=== PATIENT | female | born 1950 | race Caucasian/White ===

== ENCOUNTER 2025-05-30 12:36 | Outpatient (AMB) | payer MEDICARE, SELFPAY ==
--- NOTE | 2025-05-30 13:09 | A.OFFPC_ITS ---
Vital Signs 05/30/25 13:37 Height 5 ft 4 in Weight 168 lb 6 oz BMI 28.9 BP 140/98 H Blood Pressure Location Lt brachial Position Sitting Pulse 66 Pulse Source Pulse Oximeter Pulse Oximetry (%) 98 Oxygen Delivery Method Room Air Intake Visit Reasons: establish care Systems Mgr Required: No Accompanied by: Self / Same As Patient Allergies bee pollen (BEE STINGS) Allergy (Severe, Verified 05/30/25 14:17) ANAPHYLAXIS cat dander (cats) Allergy (Intermediate, Verified 06/05/25 02:52) sneezing, runny nose morphine (Morphine) Allergy (Intermediate, Verified 05/30/25 14:17) NAUSEA/VOMITING Sulfa (Sulfonamide Antibiotics) Allergy (Intermediate, Verified 05/30/25 14:17) DIFFICULTY BREATHING,SWELLING, angioedema, swelling, anaphylaxis vancomycin (VANCOMYCIN) Allergy (Intermediate, Verified 05/30/25 14:17) HIVES sulfur Allergy (Unknown, Verified 05/30/25 14:17) swelling, anaphylaxis bee stings Allergy (Unknown, Uncoded 05/30/25 14:17) Unknown Medication List - Last Reconciled 06/05/25 by Malik Spencer MD aspirin 81 mg PO BID atorvastatin 20 mg PO DAILY diazepam 5 mg PO Q8H PRN hydrocodone-acetaminophen 5-325 mg 1 tab PO Q6H PRN latanoprost 0.005% 1 drp ophthalmic (eye) BEDTIME omeprazole 20 mg PO DAILY potassium chloride ER 20 mEq PO BID propranolol 10 mg PO BID timolol maleate 0.5% 2 drps ophthalmic (eye) BID tizanidine 2 mg PO TID PRN Tobacco use date assessed: 05/30/25 Last assessed Fall Risk: 05/30/25 Dental Screening Dental Screen Date: 05/30/25 HPI establish care HPI Details Patient comes in today to establish care - is a new patient to the practice States that she moved back here recently from [place] after her She was originally living here in [facility] but moved down to the floor the many years ago with her when they retired and is now living here, at least temporarily, with her daughter and her son-in-law States that she is 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 She reportedly underwent surgeries to correct her eyes but the surgeries were unsuccessful She has multiple other existing chronic medical / physical conditions, including hypertension, for which she takes Propranolol She also has tremors for which she takes Propranolol as well She has a history of rheumatic fever, for which she takes low-dose aspirin twice a day preventively She is on atorvastatin for high cholesterol She also has history of osteomyelitis in his spine required IV antibiotics through a PICC line for a couple of months She has a history of spinal stenosis and underwent back surgery in the past from L2-L5 - recalls that she had some brace and screws placed onto her lower back Also (+) history of diverticulosis, allergic rhinitis and trigger finger Patient states that she feels okay otherwise She denies any headaches or dizziness Denies any chest pains, no shortness of breath No nausea/vomiting, no abdominal pain No change in bowel habits noted [facility] Medical History (Updated 06/05/25 @ 03:14 by Malik Spencer MD) Basal cell carcinoma Overweight (BMI 25.0-29.9) Glaucoma GERD without esophagitis Lumbar spinal stenosis Hyperlipidemia Retinal detachment History of osteomyelitis Benign essential tremor Essential hypertension History of rheumatic fever Surgical History (Updated 06/05/25 @ 02:46 by Malik Spencer MD) History of carpal tunnel release History of bilateral knee arthroplasty History of arthroplasty of right hip History of breast biopsy History of tubal ligation History of lumbosacral spine surgery Family History (Updated 05/30/25 @ 13:44 by WAQAS Agarwal) Other FH: mental illness Heart disease Lung cancer Substance abuse Thyroid cancer Vocal cord cancer Social History (Updated 06/05/25 @ 02:47 by Malik Spencer MD) Alcohol intake: current Alcohol intake frequency: holidays/special occasions only Patient Tobacco Use Status: Never used Tobacco Questionnaire PHQ-9 Over the last 2 weeks, how often have you been bothered by any of the following problems? 1. Little interest or pleasure in doing things: not at all 2. Feeling down, depressed, or hopeless: not at all 3. Trouble falling or staying asleep, or sleeping too much: not at all 4. Feeling tired or having little energy: not at all 5. Poor appetite or overeating: not at all 6. Feeling bad about yourself - or that you are a failure or have let yourself or your family down: not at all 7. Trouble concentrating on things, such as reading the newspaper or watching television: not at all 8. Moving or speaking so slowly that other people could have noticed. Or the opposite - being so fidgety or restless that you have been moving around a lot more than usual: not at all 9. Thoughts that you would be better off or of hurting yourself in some way: not at all Total score: 0 Depression Screening Interpretation: Negative Depression Screening Done: Yes 09257 - PHQ-9 Billing: Yes Source: Developed by Drs. Nathan Dunn, Tonya Palacios, Crow Nunez and colleagues, with an educational ayaan from [employer] Thrive Questionnaire Date Thrive assessed: 05/30/25 I am a: Patient What is your living situation today?: I choose not to answer this question Within the past 12 months, did the food you bought not last and you didn't have the money to get more?: I choose not to answer this question Within the past 12 months, did you worry whether your food would run out before you got money to buy more?: I choose not to answer this question Do you have trouble paying for medicines?: I choose not to answer this question Do you have trouble getting transportation to medical appointments?: I choose not to answer this question Do you have trouble paying your heating and electricity bill?: I choose not to answer this question Do you have trouble taking care of your child, family member or friend?: I choose not to answer this question Do you have trouble with day-to-day activities such as bathing, preparing meals, shopping, managing finances, etc.?: I choose not to answer this question Are you currently unemployed and looking for a job?: I choose not to answer this question Are you interested in more education?: I choose not to answer this question Please select the resources that you would like help with: None Currently or been in a relationship where the following occur: I choose not to answer THRIVE Score: 0 AUDIT C Alcohol Use Questionnaire (AUDIT-C) 1. How often do you have a drink containing alcohol?: 2-3 times a week 2. How many drinks containing alcohol do you have on a typical day when you are drinking?: 1 or 2 3. How often do you have six or more drinks on one occasion?: Never Total Score: 3 Score Reviewed/Action Taken: Yes BERYL-7 AMB Questionnaire BERYL-7 Date BERYL - 7 assessed: 05/30/25 Feeling nervous, anxious, or on edge: 2 = More than half the days Not being able to stop or control worryin = Not at all Worrying too much about different things: 0 = Not at all Trouble relaxin = Not at all Being so restless that it is hard to sit still: 0 = Not at all Becoming easily annoyed or irritable: 0 = Not at all Feeling afraid as if something awful might happen: 0 = Not at all Total BERYL-7 score (0-4 normal; 5-9 mild; 10-14 moderate; 15-21 severe): 2 Source: Developed by Drs. Nathan Dunn, Tonya Palacios, Crow Nunez and colleagues, with an educational ayaan from [employer] Review of Systems Const Denies chills, Denies fatigue, Denies fever(s) and Denies headache(s) Eyes Details: Patient is legally blind Reports loss of vision (bilaterally) ENT Denies dysphagia, Denies dizziness, Denies otalgia, Denies headache(s), Denies neck pain, Denies odynophagia and Denies sore throat Card Denies chest pain, Denies palpitations and Denies dyspnea Resp Denies chest congestion, Denies cough and Denies dyspnea GI Denies abdominal pain, Denies constipation, Denies dysphagia, Denies heartburn, Denies diarrhea, Denies nausea, Denies odynophagia and Denies vomiting Denies difficulty voiding, Denies nocturia and Denies dysuria Musc Reports back pain (over the lower back) and Denies neck pain Skin/Breast Denies rash Neuro Denies dizziness, Denies headache(s) and Reports loss of vision (bilaterally) Endo Denies fatigue and Denies palpitations Physical exam (Primary Care) Vital Signs: Last Vital Signs Pulse 66 05/30/25 13:37 BP 140/98 H 05/30/25 13:37 Pulse Ox 98 05/30/25 13:37 Oxygen Delivery Method Room Air 05/30/25 13:37 BMI result Body Mass Index 28.9 Tobacco/Smoking Status: Tobacco use Status Tobacco use date assessed 05/30/25 05/30/25 13:13 PHQ-9: PHQ-9 Score PHQ-9: Total score 0 05/30/25 14:22 Depression Screening Interpretation: Negative Thrive Assessment: Date of Thrive Assessment Date Thrive assessed 05/30/25 05/30/25 13:13 Currently or been in a relationship where the following occur: I choose not to answer Const General: no acute distress and alert HENMT Ears: TM's normal bilaterally and EAC's normal Throat: Yes posterior oropharynx normal and Yes tonsils normal (no TP congestion) Eyes Other: Patient is legally blind in both eyes Neck Neck: Yes supple and No lymphadenopathy Thyroid: Thyroid normal Resp Auscultation: clear to auscultation bilaterally, no rales and no wheezes Cardio Rate: regular rate Rhythm: regular rhythm Heart sounds: Murmur heart sound present systolic soft and III/ GI Palpation (GI): Soft to palpation and nontender Auscultation: normal bowel sounds General: Yes no CVA tenderness Back/Spine/Pelvis Back: no CVA tenderness Thoracic/Lumbar Spine: lumbar spinal tenderness Skin Rashes: no rashes Extrem General: Yes no clubbing, cyanosis or edema Coding Level of Care Code New Pt Level 4 (16905) Diagnoses Essential hypertension I10 Pure hypercholesterolemia E78.00 Hyperlipidemia type: pure hypercholesterolemia Cardiac murmur R01.1 History of rheumatic fever Z86.79 GERD without esophagitis K21.9 Spinal stenosis of lumbar region without neurogenic claudication M48.061 Neurogenic claudication status: without neurogenic claudication Benign essential tremor G25.0 Glaucoma of both eyes, unspecified glaucoma type H40.9 Glaucoma type: unspecified Laterality: bilateral Overweight (BMI 25.0-29.9) E66.3 Colon cancer screening Z12.11 Additional Codes PHQ-9 - 18806 - PHQ-9 Billing: Yes ([id number]) Assessment & Plan Assessment & Plan (1) Essential hypertension: Code(s): I10 - Essential (primary) hypertension Category: Medical Plan: Reinforced low sodium diet - goal is systolic BP of at least 130 to 140 mm or less Continue Propranolol 10 mg BID (2) Hyperlipidemia: Code(s): E78.5 - Hyperlipidemia, unspecified Category: Medical Qualifiers: Hyperlipidemia type: pure hypercholesterolemia Qualified Code(s): E78.00 - Pure hypercholesterolemia, unspecified Plan: Reinforced low cholesterol diet Continue Atorvastatin 20 mg QD Will recheck her labs and fasting lipids in 3 months for follow up (3) Cardiac murmur: Code(s): R01.1 - Cardiac murmur, unspecified Category: Medical Plan: (+) Hx of rheumatic fever Will send patient for echocardiogram for further evaluation (4) History of rheumatic fever: Code(s): Z86.79 - Personal history of other diseases of the circulatory system Category: Medical Plan: Continue Aspirin 81 mg BID Follow up with cardiology as scheduled (5) GERD without esophagitis: Code(s): K21.9 - Gastro-esophageal reflux disease without esophagitis Category: Medical Plan: Dietary restrictions reinforced Continue Omeprazole 20 mg QD (6) Lumbar spinal stenosis: Comment: S/P laminectomy and decompression - L2 to L5 Code(s): M48.061 - Spinal stenosis, lumbar region without neurogenic claudication Category: Medical Qualifiers: Neurogenic claudication status: without neurogenic claudication Qualified Code(s): M48.061 - Spinal stenosis, lumbar region without neurogenic claudication Plan: Reinforced activity and weight-lifting restrictions to avoid aggravating her low back pain Continue Aleve 220 mg 2 tablets BID PRN for pain (7) Benign essential tremor: Code(s): G25.0 - Essential tremor Category: Medical Plan: Continue Propranolol 10 mg BID (8) Glaucoma: Comment: patient is legally blind due to retinal detachment Code(s): H40.9 - Unspecified glaucoma Category: Medical Qualifiers: Glaucoma type: unspecified Laterality: bilateral Qualified Code(s): H40.9 - Unspecified glaucoma Plan: Continue Latanoprost 0.005% eyedrops 1 drop into each eye Q HS and Timolol 0.5% 2 drops into each eye QD Follow up with ophthalmology as scheduled (9) Overweight (BMI 25.0-29.9): Code(s): E66.3 - Overweight Category: Medical Plan: Reinforced diet; exercise and weight loss are not realistic given patient's multiple medical and physical issues (10) Colon cancer screening: Code(s): Z12.11 - Encounter for screening for malignant neoplasm of colon Category: Medical Plan: Per request, will refer her to GI for repeat colonoscopy - patient states that she is due for repeat Plan Follow up in 3 months Orders: Orders Lipid Panel 3 Months E78.00 - Pure hypercholesterolemia, unspecified TSH reflex Free T4 3 Months E78.00 - Pure hypercholesterolemia, unspecified Vitamin D 25-OH Total 3 Months E55.9 - Vitamin D deficiency, unspecified CA echo transthoracic complete 05/30/25 R01.1 - Cardiac murmur, unspecified, Z86.79 - Personal history of other diseases of the circulatory system Complete Blood Count Auto Diff 3 Months D64.9 - Anemia, unspecified Comprehensive [place]. Panel Fast 3 Months E78.00 - Pure hypercholesterolemia, unspecified UA CC w/rflx Micro + Cult 3 Months R30.0 - Dysuria Vitamin B12 and Folate 3 Months E53.8 - Deficiency of other specified B group vitamins Referrals Gastroenterology Referral Z12.11 - Encounter for screening for malignant neoplasm of colon
[2025-05-30 13:37] VITALS: BP 140/98; PULSE 66; O2SAT 98; BMI 28.9
--- OUTSIDE RECORDS SUMMARY | 2025-05-30 16:38 | XMS_ITS | Clinical Summary ---
Author Organization [address] [place] [address] Address [address] [place] [address] Phone Care Team Providers Care Mailroom Clerk Name Role Phone Mayank Dias MD Primary Care Provider Unavail able Social History Tobacco Use Types Packs/Day Years Used Date Smoking Tobacco: Never Assessed Comments Unknown Sex and Gender Information Value Date Recorded Sex Assigned at Not on file Legal Sex Female 1:23 PM EDT Gender Identity Not on file Sexual Orientation Not on file Plan of Treatment Upcoming Encounters Date Type Department Care Team ([facility] Contact Info) Description 07/21/2025 11:30 AM EST Consult Neurosurgery [facility] [address] [address] Mary Lou Bain PA [address] [place] [address] [id number] Health Maintenance Due Date Last Done Comments Breast Cancer Screening 1950 DTaP,Tdap,and Td Vaccines (1 - Tdap) 11/15/1970 Pneumococcal Vaccine: 50+ Ye ars (1 of 1 - PCV) 11/15/2001 Zoster Vaccines (1 of 2) 11/15/2001 Depression Screening 09/14/2024 COVID-19 Vaccine (1 - 2023-2 5 season) 2025 Influenza Vaccine (#1) 2025 Colorectal Cancer Screening: Colonoscopy 05/19/2025 Falls Risk Assessment 05/19/2025 Hepatitis C Screening 05/19/2025 Medicare Annual Wellness Visit 05/19/2025 Osteoporosis Screening (Bone Density Screening) 05/19/2025 Social Influencers of Health Screening 05/19/2025 RSV Immunization Adult Patie nts (1 - 1-dose 75+ series) 11/15/2026 HIB Vaccines Aged Out No longer eligi ble based on patient's age to complete this topic HPV Vaccines Aged Out No longer eligi ble based on patient's age to complete this topic Hepatitis A Vaccines Aged Out No long er eligible based on patient's age to complete this topic Hepatitis B Vaccines Aged Out No long er eligible based on patient's age to complete this topic IPV Vaccines Aged Out No longer eligi ble based on patient's age to complete this topic MMR Vaccines Aged Out No longer eligi ble based on patient's age to complete this topic Meningococcal ACWY Vaccine Aged Out N o longer eligible based on patient's age to complete this topic Meningococcal B Vaccine Aged Out No l onger eligible based on patient's age to complete this topic RSV Immunization Patients Un fan 20 months Aged Out No longer eligible b ased on patient's age to complete this topic Varicella Vaccines Aged Out No longer eligible based on patient's age to complete this topic Insurance MEDICARE [facility] Care Teams Mailroom Clerk Relationship Specialty Start Date End Date , MD Mayank [address] [address] PCP - General Internal Medicine 05/22/25
== END 2025-05-30 14:54 | disposition home or self-care (01) ==
LOC: HO.HMCH 12:37
PROVIDERS: PCP Internal Medicine; Visit Provider Internal Medicine
DX: I10 Essential (primary) hypertension (principal); E78.00 Pure hypercholesterolemia, unspecified; R01.1 Cardiac murmur, unspecified; Z86.79 Personal history of other diseases of the circulatory system; K21.9 Gastro-esophageal reflux disease without esophagitis; M48.061 Spinal stenosis, lumbar region without neurogenic claudication; G25.0 Essential tremor; H40.9 Unspecified glaucoma; E66.3 Overweight; Z12.11 Encounter for screening for malignant neoplasm of colon

== ENCOUNTER → 2025-05-30 12:36 | Outpatient (BNVA) | payer MEDICARE, SELFPAY | PROVIDERS: PCP Internal Medicine; Visit Provider Internal Medicine | DX: I10 Essential (primary) hypertension (principal); E78.00 Pure hypercholesterolemia, unspecified; R01.1 Cardiac murmur, unspecified; K21.9 Gastro-esophageal reflux disease without esophagitis; M48.061 Spinal stenosis, lumbar region without neurogenic claudication; G25.0 Essential tremor; H40.9 Unspecified glaucoma; E66.3 Overweight; Z86.79 Personal history of other diseases of the circulatory system; Z68.28 Body mass index [BMI] 28.0-28.9, adult | CPT/HCPCS: 96127; 99202 ==

== ENCOUNTER → 2025-06-28 10:47 | Outpatient (REF) | payer MEDICARE, SELFPAY ==
--- NOTE | 2025-06-28 10:51 | CA_ITS ---
Transthoracic Echocardiogram Patient (Last, First, Middle): Anna Lambert, Gender: F Date of : 1950 Age: 74 Procedure Date: 06/28/2025 Procedure Type: Transthoracic Echocardiogram Location: OP Height: 162.56 cm Weight: 76.2 kg BSA: 1.82 m2 Heart Rate: bpm BP: 140 / 94 mmHg Operative Supervisor: CHRISTOS Referring MD: Malik Spencer MD Water Hydrant Installer: Maciel Campo MD Symptoms: R01.1 - Cardiac murmur, unspecified Study Quality: Adequate ECG Rhythm: Sinus Conclusions: - 1. Normal LV ejection fraction of 65-70% 2. Calcific aortic valve changes noted with mild aortic regurgitation early mild aortic stenosis 3. Mildly dilated ascending aorta 3.7 cm 4. Normal RV systolic pressure 5. No gross pericardial effusion Findings Left Ventricle Normal left ventricular size, thickness, and systolic function. The visually estimated ejection fraction is between 65-70%. Spectral Doppler is indicative of a normal filling pattern. Right Ventricle Normal right ventricular cavity size and systolic function. Atria The left atrium is likely dilated. There is no evidence of interatrial shunt. The right atrium is normal in size. Aortic Valve The aortic valve was not well visualized. There is mild calcification of the aortic valve. The peak aortic gradient is 19 mmHg.The mean gradient is 10 mmHg. The aortic valve area is 2.21 cm2. There is mild aortic valve regurgitation. Mitral Valve There is mild anterior mitral leaflet thickening. There is trace mitral valve regurgitation. There is no mitral valve stenosis. Pulmonic Valve The pulmonic valve was not well visualized. Tricuspid Valve Normal tricuspid valve structure. There is trace tricuspid valve regurgitation. The right ventricular systolic pressure is normal. The right ventricular systolic pressure is 25 mmHg. Normal right atrial pressure. There is no evidence of pulmonary hypertension. Great Vessels The aorta was not well visualized. The pulmonary artery was not well visualized. There is mild dilatation of the ascending aorta measuring 3.70 cm. Venous The inferior vena cava is normal in size and collapses greater than 50% with inspiration. Pericardium/Pleural There is no evidence of pericardial effusion. Prior Study Comparison No prior study available for comparison. Measurements 2D Linear Measurements IVSd: 1.06 0.6-0.9/0.6-1.0 cm LVIDd: 4.20 3.9-5.3/4.2-5.9 cm LVIDd Index: 2.31 2.4-3.2/2.2-3.1 cm/m2 LVIDs: 2.68 2.0-3.6 cm LVPWd: 1.08 0.7-1.1 cm LA Diam: 3.40 2.7-3.8/3.0-4.0 cm LAIDs Index: 1.87 1.5-2.3 cm/m2 LV Mass: 208.56 67-162/88-224 g LV Mass Index: 114.59 43-95/49-115 g/m2 LVOT Diam: 2.10 3.0+(-)1.3 cm 2D Systolic Function EF 4C: 66.10 >55% EF 2C: 66.10 >55% EF BiP: 67.00 >55% Mitral Valve MV Pk E: 1.01 MV PK A: 0.66 MV Decel Time: 201.00 E/A: 1.50 E'Lateral: 8.92 E'Medial: 7.18 E/E' Med: 14.10 E/E' Lat: 11.30 PHT: 59.00 MVA PHT: 3.73 Decel Winn: 5.04 Aortic Valve AoV Pk Seven: 2.18 AoV Mn Seven: 1.47 AoV VTI: 0.60 AoV Pk Grad: 19.00 Aov Mn Grad: 10.00 ZABRINA Cont.VTI: 2.21 AI Pk Seven: 4.69 AI VTI: 3.09 AI Winn: 1.95 AI Alias Seven: 0.40 AI RV - PISA: 15.00 ERO - PISA: 5.00 LVOT LVOT Pk Seven: 1.64 LVOT Mn Seven: 0.91 LVOT VTI: 0.38 LVOT Pk Grad: 11.00 LVOT Mn Grad: 4.00 LVOT Diam: 2.10 LVOT Area: 3.46 Diastolic Function MV Pk E: 1.01 MV Pk A: 0.66 E/A: 1.50 E'Medial: 7.18 E/E' Med: 14.10 E' Laterial: 8.92 E/E' Lat: 11.30 Right Ventricle TAPSE (mm): 24.90 TVS' Seven: 11.40 Tricuspid Valve TR Pk Seven: 2.32 TR Pk Grad: 22.00 RA Press: 3.00 RVSP: 25.00 Great Vessels Aorta Sinus of Valsalva: 2.96 2.0-3.5 cm Ao Asc: 3.70 2.1-3.4 cm Pulmonary Veins Pulm Vein S/D 1.20 Updated in Other Vendor System with Status of Final Maciel Campo MD electronically signed on 06/28/2025 1:56:40 PM with status of Final
== END ==
LOC: HO.CARD 10:47
PROVIDERS: PCP Internal Medicine; Visit Provider Internal Medicine
DX: R01.1 Cardiac murmur, unspecified (principal); Z86.79 Personal history of other diseases of the circulatory system
CPT/HCPCS: 93306

== ENCOUNTER → 2025-06-28 10:51 | Outpatient (BNV) | payer MEDICARE, SELFPAY | PROVIDERS: PCP Internal Medicine; Visit Provider Internal Medicine Cardiovascular Disease | DX: I35.0 Nonrheumatic aortic (valve) stenosis (principal); I35.1 Nonrheumatic aortic (valve) insufficiency; I77.810 Thoracic aortic ectasia | CPT/HCPCS: 93306 ==

== ENCOUNTER 2025-07-31 13:33 | Outpatient (REF) | payer MEDICARE, SELFPAY | END 2025-07-31 13:34 | disposition home or self-care (01) | LOC: HO.MAMMO 13:33 | PROVIDERS: PCP Internal Medicine; Visit Provider Internal Medicine | DX: Z12.31 Encounter for screening mammogram for malignant neoplasm of breast (principal) | CPT/HCPCS: 77063; 77067 ==

== ENCOUNTER → 2025-07-31 13:45 | Outpatient (BNV) | payer MEDICARE, SELFPAY | PROVIDERS: PCP Internal Medicine; Visit Provider Internal Medicine | DX: Z12.31 Encounter for screening mammogram for malignant neoplasm of breast (principal) | CPT/HCPCS: 77063; 77067 ==

== ENCOUNTER 2025-08-17 06:27 | Outpatient (REF) | payer MEDICARE, SELFPAY ==
--- OUTSIDE RECORDS SUMMARY | 2025-08-17 06:31 | XMS_ITS | Patient Health Record ---
Author Organization [facility] Address [address] [place] [address] Care Team Providers Care Acetylene Gas Compressor Name Role Phone Tj SOLOMON, Malik Primary Care Provider Bakari Maria Jr Unavailable [phone] Allergies Allergen (clinical drug ingredient) Drug/Non Drug Allergy documented on EMR Reaction Allergy Type Onset Date Status bee stings (uncoded) Unknown Allergy Active sulfamethoxazole / trimethoprim Bactrim Unknown Drug Allergy Active Sulfa Unknown Drug Allergy Active Reason For Referral No Information Medications Medication SIG (Take, Route, Frequency, Duration) Notes Start Date End Date Status Aspirin 81 MG Tablet Chewable 1 tablet Orally Once a day Active Timolol Hemihydrate 0.5 % Solution 1 drop into affected eye Ophthalmic Once a day Active Colyte with Flavor Packs 240 GM Solution Reconstituted As directed Orally Over the specified time.; Duration: 1 day(s) 02/20/2016 Active Multivitamins 1 Capsule 1 Orally qd Active Xalatan 0.005 % Solution 1 drop into aff ected eye in the evening Ophthalmic Once a day Active Lipitor 20 MG Tablet 1 tablet Orally Onc e a day Active diazePAM 5 MG Tablet 1 tablet as needed Orally prn Active Omeprazole 20 MG Capsule Delayed Release 1 capsule Orally Once a day Active clonazePAM 0.5 MG Tablet Dispersible 1 tablet on the tongue and allow to dissolve Orally once a day Active Aleve 220 MG Capsule 1 tablet as needed Orally every 12 hrs Active Inderal LA 60 MG Capsule Extended Release 24 Hour 1 capsule Orally daily 02/20/2016 Active Immunizations Vaccine Route Administration Date Status Comme nts Flu vaccine no Preserv 3 and > Unknown 06/07/2014 Admin istered Flu vaccine no Preserv 3 and > Unknown 05/29/2015 Admin istered Social History Social History Additional Details Category Social Info Options Details Miscellaneous: Marital status: single Occupation: retired Problems Problem Type SNOMED Code ICD Code Onset Dates Problem Status W/U Status Risk Notes Problem Esophageal reflux (846174202) Esophageal reflux (530.81) Active confirmed Problem Irritable bowel syndrome (02944097) Irritable bowel syndrome (564.1) Active confirmed Problem Colon cancer screening (225815298) Colon cancer screening (Z12.11) Active confirmed Problem Irritable bowel syndrome with diarrhea (851737719) Irritable bowel syndrome with diarrhea (K58.0) Active confirmed Problem Gastroesophageal reflux disease without esophagitis (095637712) Gastroesophageal reflux disease without esophagitis (K21.9) Active confirmed Plan Of Treatment Future Test Test Name Order Date COLONOSCOPY 02/20/2016 Next Appt Details Provider Name:Bakari suarez , 10/04/2025 11:00:00 AM, [address] [place] [address], [address], [place], [address], Insurance Providers Payer Name Payer Address Payer Phone Subscriber Number Group Number Insured Name Patient Relationship to Insured Coverage Start Date Coverage End Date MEDICARE OF [place] [address] [place] [address] [id number] RICKEY GUERRA Self - patient is the insured [employer] ATT[employer] CLAIMS [address] [place] [address] [id number] RICKEY GUERRA Self - patient is the insured Medical (General) History Medical History History ICD Code colonoscopy 11-22-2010 colitis colon polyps elevated cholesterol essestial tremor osteoarthritis heart murmur for which she takes prophyl actic antibiotics retinal detachment with legal blindness Denies CA,DM,CVA,Lung disease,renal dise ase Surgical History Surgery Date(Month/Year) right hip replacement benign breast biopsy detached retina tubal ligation knee surgery right knee replacement eye surgery
--- OUTSIDE RECORDS SUMMARY | 2025-08-17 06:31 | XMS_ITS | Clinical Summary ---
Author Organization [facility] Address [address] [place] [address] Phone Care Team Providers Care Film Waxer Name Role Phone Mayank Dias MD Primary Care Provider Unavail able Allergies Active Allergy Reactions Criticality Noted Date Comments Sulfamethoxazole-Trimethoprim 2024 Bee Venom Protein (Honey Bee) 2024 Nirmatrelvir-Ritonavir 07/21/2025 Sulfair 07/21/2025 Vancomycin 07/21/2025 Medications atorvastatin (LIPITOR) 10 mg tablet 04/18/2025 Active diazePAM (VALIUM) 5 mg tablet Take 1 tablet (5 mg total) by mouth every 8 (eight) hours if needed. for anxiety 04/18/2025 Active HYDROcodone-violetta taminophen (NORCO) 5-325 mg per tablet 10/28/2024 Activ e latanoprost (XALATAN) 0.005 % ophthalmic solution INSTILL 1 DROP IN BOTH EYES EVERY NIGHT AT BEDTIME DIRECTED 05/03/2025 Active omeprazole (PriLOSEC) [address] capsule Take 1 capsule (20 mg total) by mouth 1 (one) time each day. 05/04/2025 Active potassium chloride 20 mEq tablet extended release 10/26/2024 Active propranoloL (INDERAL) 10 mg tablet 04/18/2025 Active timolol (TIMOPTIC) 0.5 % ophthalmic solution PLACE 1 DROP INTO EACH EYE TWICE DAILY DIRECTED 04/18/2025 Active tiZANidine (ZANAFLEX) 2 mg tablet 10/28/2024 Active Active Problems Problem Noted Date Diagnosed Date History of lumbar spinal fusion 07/21/2025 Assessment & Plan (07/21/2025 12:44 PM EST): Patient is s/p L2-5 posterior decompression, interbody cages, posterior fixation on 10/17/[address] Dias in [place]. She has moved back to the area to be with her daughter, has done very well after surgery, is walking better, uses a cane when she is outside of the house for security, back pain is much better. If she stands >5 minutes for example cooking she will get sharp low back pain 7-8/10. When she moves around and changes positions it improves. She denies any leg symptoms. Prior to surgery she had a lot of back pain, difficulty walking, and for years had conservative treatment options like injections also has history of osteomyelitis discitis in 2007, at the time was living here and Dr. Andrade saw her at [facility]. She does not have any recent medical issues, no history of heart attack or stroke, no diabetes, is considered legally blind. Ms. Lambert has done very well after surgery, needs to establish a neurosurgeon locally now that she has moved back. She brought a disc that had a lumbar MRI from [place], we can try to load into swiftQueue PACS, I was unable to open it on the computer in the office. We talked about physical therapy, core strengthening, balance training. Her daughter works at the [employer] in [place], they have great aquatic classes for balance, arthritis, etc. She plans to go there, will call if she has any concerns or questions. We will check 1 year follow-up lumbar CT in October. All questions answered. Encounters Date Type Department Care Team Description 07/21/2025 11:15 AM EST Consult Neurosurgery [place] [address] [place] [address] Mary Lou Bain PA History of lumbar spinal fusion (Primary Dx) from Last 3 Months Surgical History Surgery Date Site/Laterality Comments HIP-RIGHT 09/14/1998 - 09/13/1999 Right Replacement TOTAL KNEE ARTHROPLASTY 09/14/2015 - 09/13/2016 Right TOTAL KNEE ARTHROPLASTY 09/14/2016 - 09/13/2017 Left CARPAL TUNNEL RELEASE 09/14/2023 - 09/13/2024 Left SPINE SURGERY 10/17/2024 L2-5 decompression and interbody cages, posterior fusion, Dr. Dias in [place] CARPAL TUNNEL RELEASE 09/14/2024 - 09/13/2025 Right Medical History Medical History Date Comments Anemia Anxiety Osteoarthritis Diverticulosis Spinal stenosis Tremor, essential Social History Tobacco Use Types Packs/Day Years Used Date Smoking Tobacco: Former Cigarettes 0 2 012 - 1972 Passive Smoke Exposure: Past Smokeless Tobacco: Never Tobacco Cessation:Counseling Given: Not Answered Comments:Quit 2012 Comments Unknown Sex and Gender Information Value Date Recorded Sex Assigned at Not on file Legal Sex Female 1:23 PM EDT Gender Identity Not on file Sexual Orientation Not on file Obstetrics History Last Filed Vital Signs Vital Sign Reading Time Taken Comments Blood Pressure - - Pulse - - Temperature - - Respiratory Rate - - Oxygen Saturation - - Inhaled Oxygen Concentration - - Weight 74.8 kg (165 lb) 07/21/2025 11:53 AM EST Height 165.1 cm (5' 5 ) 07/21/2025 11:53 AM EST Body Mass Index 27.46 07/21/2025 11:53 AM EST Plan of Treatment Health Maintenance Due Date Last Done Comments Breast Cancer Screening 1950 Colorectal Cancer Screening: Colonoscopy 1950 DTaP,Tdap,and Td Vaccines (1 - Tdap) 11/15/1970 Pneumococcal Vaccine: 50+ Years (1 of 1 - PCV) 11/15/2001 Zoster Vaccines (1 of 2) 11/15/2001 Depression Screening 09/14/2024 Cholesterol Screening (Lipid Panel) 05/19/2025 Falls Risk Assessment 05/19/2025 Hepatitis C Screening 05/19/2025 Medicare Annual Wellness Visit 05/19/2025 Osteoporosis Screening (Bone Density Screening) 05/19/2025 Social Influencers of Health Screening 05/19/2025 COVID-19 Vaccine (2 - 2024-2 6 season) 2026 07/04/2025 RSV Immunization Adult Patients (1 - 1-dose 75+ series) 11/15/2026 Influenza Vaccine Completed 07/04/2025, 07/18/2015 HIB Vaccines Aged Out No longer eligi [...] to complete this topic RSV Immunization Patients Under 20 months Aged Out No longer eligible b ased on patient's age to complete this topic Varicella Vaccines Aged Out No longer eligible based on patient's age to complete this topic Insurance MEDICARE [facility] Care Teams Film Waxer Relationship Specialty Start Date End Date , MD Mayank [id number] [address] PCP - General Internal Medicine 05/22/25
[2025-08-17 06:40] LABS: MANUAL DIFF FLAG NO
[2025-08-17 07:15] LABS: Hematocrit 41.8 % (37.0-47.0); Hemoglobin 13.3 g/dl (12.0-16.0); Imm Gran Abs Auto 0.03 X10*3/uL (0.00-0.03); Imm Gran Pct Auto 0.5 % (0.0-0.4); Lymphocytes Absolute Auto 1.5 X10*3/uL (1.2-4.9); Mean Corpuscular HGB Conc 31.8 g/dl (31.0-35.0); Mean Corpuscular Hemoglobin 30.4 pg (27.0-33.0); Mean Corpuscular Volume 95.4 fL (80.0-98.0); NRBC Abs Auto 0.000 X10*3/uL (0.0-0.012); NRBC Pct Auto 0.0 /100WBC (0.0-0.2); Platelet Count 297 X10*3/uL (160-400); Red Blood Count 4.38 X10*6/uL (4.20-5.50); White Blood Count 5.7 X10*3/uL (4.8-10.8)
[2025-08-17 07:46] LABS: Appearance Urine Clear; Glucose Urine UA Negative (Negative); PH 5.5 (5.0-9.0); Specific Gravity - Urine 1.010 (1.005-1.025); UMIC TRIGGER UACC YES
[2025-08-17 07:59] LABS: Alanine Aminotransferase 17 U/L (0-31); Albumin Level 4.5 g/dL (3.5-5.0); Alkaline Phosphatase 115 U/L (39-117); Anion Gap 12 (12-20); Aspartate Amino Transferase 27 U/L (5-31); Blood Urea Nitrogen 17 mg/dL (9-16); Calcium 9.7 mg/dL (8.4-10.2); Carbon Dioxide 27 mmol/L (22-29); Chloride 107 mmol/L (96-108); Cholesterol 230 mg/dL (<200); Estimated Glomerular Filt Rate > 60; HDL Cholesterol 75 mg/dL (>40); Potassium 4.4 mmol/L (3.3-5.1); Sodium 142 mmol/L (135-145); Total Protein 7.5 g/dL (6.5-8.0); Triglycerides 92 mg/dL (<150)
[2025-08-17 08:11] LABS: Folate 6.9 ng/mL (> or = 4.0); Vitamin B12 323 pg/mL (200-900)
== END 2025-08-17 06:28 | disposition home or self-care (01) ==
LOC: HO.LAB 06:27
PROVIDERS: PCP Internal Medicine; Visit Provider Internal Medicine
DX: E53.8 Deficiency of other specified B group vitamins (principal); E78.00 Pure hypercholesterolemia, unspecified; E55.9 Vitamin D deficiency, unspecified; D64.9 Anemia, unspecified; R30.0 Dysuria
CPT/HCPCS: 36415; 80053; 80061; 81001; 82306; 82607; 82746; 84443; 85025

== ENCOUNTER 2025-08-21 10:08 | Outpatient (AMB) | payer MEDICARE, SELFPAY ==
[2025-08-21 10:11] VITALS: BP 130/72; PULSE 70; O2SAT 98; BMI 28.3
--- NOTE | 2025-08-21 10:11 | A.OFFPC_ITS ---
Vital Signs 08/21/25 10:11 Height 5 ft 4.57 in Weight 168 lb BMI 28.3 BP 130/72 Blood Pressure Location Lt brachial Position Sitting Pulse 70 Pulse Source Pulse Oximeter Pulse Oximetry (%) 98 Oxygen Delivery Method Room Air Intake Visit Reasons: 3 month follow up[ Allergies bee pollen (BEE STINGS) Allergy (Severe, Verified 08/21/25 10:49) ANAPHYLAXIS cat dander (cats) Allergy (Intermediate, Verified 08/21/25 10:49) sneezing, runny nose morphine (Morphine) Allergy (Intermediate, Verified 08/21/25 10:49) NAUSEA/VOMITING Sulfa (Sulfonamide Antibiotics) Allergy (Intermediate, Verified 08/21/25 10:49) DIFFICULTY BREATHING,SWELLING, angioedema, swelling, anaphylaxis vancomycin (VANCOMYCIN) Allergy (Intermediate, Verified 08/21/25 10:49) HIVES sulfur Allergy (Unknown, Verified 08/21/25 10:49) swelling, anaphylaxis bee stings Allergy (Unknown, Uncoded 08/21/25 10:49) Unknown Medication List - Last Reconciled 08/21/25 by Malik Spencer MD aspirin 81 mg PO BID atorvastatin 20 mg PO DAILY cetirizine (Zyrtec) 10 mg PO DAILY PRN diazepam 5 mg PO Q8H PRN latanoprost 0.005% 1 drp ophthalmic (eye) BEDTIME naproxen sodium 440 mg PO BID PRN omeprazole 20 mg PO DAILY propranolol 10 mg PO BID timolol maleate 0.5% 2 drps ophthalmic (eye) BID Tobacco use date assessed: 05/30/25 Fall risk assessment: No Falls in past year Last assessed Fall Risk: 08/21/25 Dental Screening Dental Screen Date: 08/21/25 Did you have a dental visit in the last 12 months?: No Did you have a dental problem in the last 6 months where you did not have access to dental care?: No Was dental information given to patient?: Patient has dentist HPI 3 month follow up[ HPI Details Patient comes in today for her follow up visit States that she has noticed increased BANGURA, mostly when she is climbing up stairs to get to her apartment, over the past few days She denies any exertional chest pains lately and denies any recent cough/cold symptoms Adds that she has also been experiencing recurrent sharp pains over her left lower rib(s) that is just under her left breast area Notes that taking deep breaths or moving or bending does trigger the pain and that the pain makes her feel more SOB when it occurs as she cannot take deep breaths due to the pain She does not recall any recent injury or trauma to her left chest area She denies any headaches or dizziness No nausea/vomiting, no abdominal pain No change in bowel habits noted Needs a couple of her Rx refilled She had her follow up labs done a few days ago - to discuss her results [facility] Medical History Basal cell carcinoma Overweight (BMI 25.0-29.9) Glaucoma GERD without esophagitis Lumbar spinal stenosis Hyperlipidemia Retinal detachment History of osteomyelitis Benign essential tremor Essential hypertension History of rheumatic fever Surgical History History of carpal tunnel release History of bilateral knee arthroplasty History of arthroplasty of right hip History of breast biopsy History of tubal ligation History of lumbosacral spine surgery Family History Other FH: mental illness Heart disease Lung cancer Substance abuse Thyroid cancer Vocal cord cancer Social History Housing: Apartment Alcohol intake: current Alcohol intake frequency: holidays/special occasions only Patient Tobacco Use Status: Former Tobacco user Tobacco use type: Cigarette e-Cigarette/Vaping Use: Never Used Second Hand Smoke Exposure: No service: No Current occupational status: retired Current occupational exposures/hazards: No Cognitive needs: No Hearing needs: No Vision needs: Yes Questionnaire PHQ-9 Over the last 2 weeks, how often have you been bothered by any of the following problems? Depression Screening Interpretation: Negative Depression Screening Done: Yes Source: Developed by Drs. Nathan Dunn, Tonya Plaacios, Crow Nunez and colleagues, with an educational ayaan from [employer] Thrive Questionnaire Date Thrive assessed: 05/29/25 I am a: Patient What is your living situation today?: I choose not to answer this question Within the past 12 months, did the food you bought not last and you didn't have the money to get more?: I choose not to answer this question Within the past 12 months, did you worry whether your food would run out before you got money to buy more?: I choose not to answer this question Do you have trouble paying for medicines?: I choose not to answer this question Do you have trouble getting transportation to medical appointments?: I choose not to answer this question Do you have trouble paying your heating and electricity bill?: I choose not to answer this question Do you have trouble taking care of your child, family member or friend?: I choose not to answer this question Do you have trouble with day-to-day activities such as bathing, preparing meals, shopping, managing finances, etc.?: I choose not to answer this question Are you currently unemployed and looking for a job?: I choose not to answer this question Are you interested in more education?: I choose not to answer this question Please select the resources that you would like help with: None Currently or been in a relationship where the following occur: I choose not to answer THRIVE Score: 0 BERYL-7 AMB Questionnaire BERYL-7 Date BERYL - 7 assessed: 05/30/25 Source: Developed by Drs. Nathan Dunn, Tonya Palacios, Crow Nunez and colleagues, with an educational ayaan from [employer] Review of Systems Const Denies chills, Denies fatigue, Denies fever(s) and Denies headache(s) Eyes Details: Patient is legally blind Reports loss of vision (bilaterally) ENT Denies dysphagia, Denies dizziness, Denies otalgia, Denies headache(s), Denies neck pain, Denies odynophagia and Denies sore throat Card Denies chest pain, Denies palpitations and Reports dyspnea on exertion Resp Details: (+) recurrent sharp pain over the left lower anterior rib(s), especially with deep breathing and movement/activity Denies chest congestion, Denies cough, Reports dyspnea on exertion and Denies wheezing GI Denies abdominal pain, Denies constipation, Denies dysphagia, Denies heartburn, Denies diarrhea, Denies nausea, Denies odynophagia and Denies vomiting Denies difficulty voiding, Denies nocturia and Denies dysuria Musc Reports back pain (over the lower back) and Denies neck pain Skin/Breast Denies rash Neuro Denies dizziness, Denies headache(s), Reports loss of vision (bilaterally) and Reports tremor(s) Endo Denies fatigue and Denies palpitations Aller/Immun Denies wheezing Physical exam (Primary Care) Vital Signs: Last Vital Signs Pulse 70 08/21/25 10:11 BP 130/72 08/21/25 10:11 Pulse Ox 98 08/21/25 10:11 Oxygen Delivery Method Room Air 08/21/25 10:11 BMI result Body Mass Index 28.3 Tobacco/Smoking Status: Tobacco use Status Tobacco use date assessed 05/30/25 08/21/25 10:13 Patient Tobacco Use Status Former Tobacco user 08/21/25 10:22 Tobacco use type Cigarette 08/21/25 10:13 e-Cigarette/Vaping Use Never Used 08/21/25 10:13 Depression Screening Interpretation: Negative Thrive Assessment: Date of Thrive Assessment Date Thrive assessed 05/29/25 08/21/25 10:13 Currently or been in a relationship where the following occur: I choose not to answer Const General: no acute distress and alert HENMT Ears: TM's normal bilaterally and EAC's normal Throat: Yes posterior oropharynx normal and Yes tonsils normal (no TP congestion) Eyes Other: Patient is legally blind in both eyes Neck Neck: Yes supple and No lymphadenopathy Thyroid: Thyroid normal Chest Chest palpation & inspection: localized rib tenderness with anteroposterior compression left mid-clavicular line Resp Auscultation: no crackles, no rales, no wheezes and diminished lung sounds bilateral Cardio Rate: regular rate Rhythm: regular rhythm Heart sounds: Murmur heart sound present systolic soft, III/ and at the right sternal border GI Palpation (GI): Soft to palpation and nontender Auscultation: normal bowel sounds General: Yes no CVA tenderness Back/Spine/Pelvis Back: no CVA tenderness Thoracic/Lumbar Spine: lumbar spinal tenderness Skin Rashes: no rashes Extrem General: Yes no clubbing, cyanosis or edema Results Reviewed Results Reviewed: Laboratory Tests 08/17/25 08/17/25 06:32 06:38 WBC 5.7 Hgb 13.3 Hct 41.8 Plt Count 297 Sodium 142 Potassium 4.4 Creatinine 0.80 Estimated GFR > 60 Fasting Glucose 88 Calcium 9.7 AST 27 ALT 17 Triglycerides 92 Cholesterol 230 H LDL Cholesterol, Calc 137 H HDL Cholesterol 75 Vitamin B12 323 25-OH Vitamin D Total 57.4 TSH 1.50 Ur Specific [place] 1.010 Urine Protein Negative Urine Glucose (UA) Negative Urine Blood Negative Urine Nitrite Negative Ur Leukocyte Esterase Trace H Coding Level of Care Code Est Pt Level 4 (62117) Diagnoses Exertional dyspnea R06.09 Rib pain on left side R07.89 Cardiac murmur R01.1 Essential hypertension I10 Pure hypercholesterolemia E78.00 Hyperlipidemia type: pure hypercholesterolemia History of rheumatic fever Z86.79 GERD without esophagitis K21.9 Spinal stenosis of lumbar region without neurogenic claudication M48.061 Neurogenic claudication status: without neurogenic claudication Benign essential tremor G25.0 Glaucoma of both eyes, unspecified glaucoma type H40.9 Glaucoma type: unspecified Laterality: bilateral Overweight (BMI 25.0-29.9) E66.3 Assessment & Plan Assessment & Plan (1) Exertional dyspnea: Code(s): R06.09 - Other forms of dyspnea Category: Medical Plan: Will send patient for chest x-rays JEB for further evaluation She had an echocardiogram done less than 2 months ago on 06/28/2025 that revealed normal LV ejection fraction of 65-70%, (+) calcific aortic valve changes noted with mild aortic regurgitation and early mild aortic stenosis, mildly dilated ascending aorta 3.7 cm, normal RV systolic pressure and no gross pericardial effusion (2) Rib pain on left side: Code(s): R07.89 - Other chest pain Category: Medical Plan: Will have her get some left rib x-rays for further evaluation but advised that her current left lower anterior rib pain is most likely due to either a rib strain or costochondritis Advised that she can try applying some warm compress over her left lower chest area PRN for now for symptomatic relief until we can get more clarification on what is causing her rib pain (3) Cardiac murmur: Code(s): R01.1 - Cardiac murmur, unspecified Category: Medical Plan: (+) Hx of rheumatic fever Echocardiogram done on 06/28/2025 revealed normal LV ejection fraction of 65-70% , (+) calcific aortic valve changes noted with mild aortic regurgitation and early mild aortic stenosis, which are most likely the source of her cardiac murmur (4) Essential hypertension: Code(s): I10 - Essential (primary) hypertension Category: Medical Plan: Reinforced low sodium diet - goal is systolic BP of at least 130 to 140 mm or less Continue Propranolol 10 mg BID although she is taking this more for her tremors than for blood pressure control (5) Hyperlipidemia: Code(s): E78.5 - Hyperlipidemia, unspecified Category: Medical Qualifiers: Hyperlipidemia type: pure hypercholesterolemia Qualified Code(s): E78.00 - Pure hypercholesterolemia, unspecified Plan: Results of her labs done a few days ago reviewed and discussed with patient - she is advised that her total and LDL cholesterol levels were elevated on her recent labs, with her LDL cholesterol at 137 mg/dl Reinforced low cholesterol diet Will increase her Atorvastatin to 40 mg QD - patient states that she often has trouble swallowing large tablets so she is requesting Rx for 2 x 20 mg tablets instead of a 40 mg tablet, which is much larger Will recheck her labs and fasting lipids in 4 months for follow up (6) History of rheumatic fever: Code(s): Z86.79 - Personal history of other diseases of the circulatory system Category: Medical Plan: Continue Aspirin 81 mg BID Follow up with cardiology as scheduled (7) GERD without esophagitis: Code(s): K21.9 - Gastro-esophageal reflux disease without esophagitis Category: Medical Plan: Dietary restrictions reinforced Continue Omeprazole 20 mg QD - Rx refilled (8) Lumbar spinal stenosis: Comment: S/P laminectomy and decompression - L2 to L5 Code(s): M48.061 - Spinal stenosis, lumbar region without neurogenic claudication Category: Medical Qualifiers: Neurogenic claudication status: without neurogenic claudication Qualified Code(s): M48.061 - Spinal stenosis, lumbar region without neurogenic claudication Plan: Reinforced activity and weight-lifting restrictions to avoid aggravating her low back pain Continue Aleve 220 mg 2 tablets BID PRN for pain (9) Benign essential tremor: Code(s): G25.0 - Essential tremor Category: Medical Plan: Continue Propranolol 10 mg BID - Rx refilled (10) Glaucoma: Comment: patient is legally blind due to retinal detachment Code(s): H40.9 - Unspecified glaucoma Category: Medical Qualifiers: Glaucoma type: unspecified Laterality: bilateral Qualified Code(s): H40.9 - Unspecified glaucoma Plan: Continue Latanoprost 0.005% eyedrops 1 drop into each eye Q HS and Timolol 0.5% 2 drops into each eye QD Follow up with ophthalmology as scheduled (11) Overweight (BMI 25.0-29.9): Code(s): E66.3 - Overweight Category: Medical Plan: Reinforced diet; exercise and weight loss are not realistic given patient's multiple medical and physical issues Plan Follow up in 4 months Orders: Orders XR chest 2V Today R06.09 - Other forms of dyspnea Lipid Panel 4 Months E78.00 - Pure hypercholesterolemia, unspecified XR ribs LT 2V Today R07.89 - Other chest pain Complete Blood Count Auto Diff 4 Months D64.9 - Anemia, unspecified Comprehensive [place]ower. Panel Fast 4 Months E78.00 - Pure hypercholesterolemia, unspecified Medications: Changed From omeprazole 20 mg PO DAILY To omeprazole 20 mg PO DAILY 90 caps 1RF 90 days From propranolol 10 mg PO BID To propranolol 10 mg PO BID 180 tabs 1RF 90 days From atorvastatin 40 mg PO DAILY To atorvastatin 40 mg (2 x 20 mg) PO DAILY 180 tabs 1RF 90 days
== END 2025-08-21 11:10 | disposition home or self-care (01) ==
LOC: HO.HMCH 10:09
PROVIDERS: PCP Internal Medicine; Visit Provider Internal Medicine
DX: R06.09 Other forms of dyspnea (principal); R07.89 Other chest pain; R01.1 Cardiac murmur, unspecified; I10 Essential (primary) hypertension; E78.00 Pure hypercholesterolemia, unspecified; Z86.79 Personal history of other diseases of the circulatory system; K21.9 Gastro-esophageal reflux disease without esophagitis; M48.061 Spinal stenosis, lumbar region without neurogenic claudication; G25.0 Essential tremor; H40.9 Unspecified glaucoma; E66.3 Overweight

== ENCOUNTER 2025-08-21 10:08 | Outpatient (REF) | payer MEDICARE, SELFPAY ==
--- NOTE | ~2025-08-21 | XR_ITS ---
EXAMINATION: X ray Chest X-ray left ribs CLINICAL INFORMATION: Chest pain COMPARISON: None TECHNIQUE: Chest 2 views. Left hip 3 views. FINDINGS: Chest: The cardiomediastinal silhouette is within normal limits. The lungs are well expanded. There is no focal consolidation, edema, or effusion. No pneumothorax. No acute osseous abnormality. Spinal fusion hardware in the lumbar spine. Ribs: Soft tissue marker positioned along the lateral aspect of the inferior cage. No acute displaced rib fracture is identified. XR/XR chest 2V IMPRESSION: No acute cardiopulmonary findings. No radiographic evidence of acute displaced left rib fracture. Electronically signed by: Itz Call MD 08/21/2025 11:52 AM EST
--- NOTE | ~2025-08-21 | XR_ITS ---
EXAMINATION: X ray Chest X-ray left ribs CLINICAL INFORMATION: Chest pain COMPARISON: None TECHNIQUE: Chest 2 views. Left hip 3 views. FINDINGS: Chest: The cardiomediastinal silhouette is within normal limits. The lungs are well expanded. There is no focal consolidation, edema, or effusion. No pneumothorax. No acute osseous abnormality. Spinal fusion hardware in the lumbar spine. Ribs: Soft tissue marker positioned along the lateral aspect of the inferior cage. No acute displaced rib fracture is identified. XR/XR ribs LT 2V IMPRESSION: No acute cardiopulmonary findings. No radiographic evidence of acute displaced left rib fracture. Electronically signed by: Itz Call MD 08/21/2025 11:52 AM [facility]
== END 2025-08-21 10:09 | disposition home or self-care (01) ==
LOC: HO.XRAY 10:08
PROVIDERS: PCP Internal Medicine; Visit Provider Internal Medicine
DX: R07.89 Other chest pain (principal); R06.09 Other forms of dyspnea; R01.1 Cardiac murmur, unspecified; I10 Essential (primary) hypertension; E78.00 Pure hypercholesterolemia, unspecified; K21.9 Gastro-esophageal reflux disease without esophagitis; M48.061 Spinal stenosis, lumbar region without neurogenic claudication; G25.0 Essential tremor; H40.9 Unspecified glaucoma; E66.3 Overweight; Z86.79 Personal history of other diseases of the circulatory system; Z68.28 Body mass index [BMI] 28.0-28.9, adult
CPT/HCPCS: 71046; 71100; 99212

== ENCOUNTER → 2025-08-21 11:20 | Outpatient (BNV) | payer MEDICARE, SELFPAY | PROVIDERS: PCP Internal Medicine; Visit Provider Radiology Diagnostic Ultrasound | DX: R07.89 Other chest pain (principal); R07.9 Chest pain, unspecified | CPT/HCPCS: 71046; 71100 ==